=== PATIENT | female | born 1960 | race Caucasian/White ===

== ENCOUNTER → 2019-05-09 | Outpatient (CLI) | payer OTHER ==
[~2019-05-09] VITALS: Ht 162.6 cm; Wt 68.0 kg
[~2019-05-09] MED LIST: LOPRESSOR50 PO; PROPAFENONE 15150 MG PO
--- NOTE | ~2019-05-09 | P ---
[facility] [address] [place] [address] PROCEDURE REPORT Name: GRANT VYAS JED Room #: REG [facility]#: [id number] Admission: 05/09/19 ������������������ Attend Phys: Sunil Rosario MD Discharge: ������������������ Date of : 60 Report #: [id number] THIS REPORT FOR: //name// CC: Ruben Rosario PREOPERATIVE DIAGNOSIS: Supraventricular tachycardia. POSTOPERATIVE DIAGNOSIS: Typical atrioventricular anil reentrant tachycardia. PROCEDURES PERFORMED: 1. SVT ablation, CPT code 47286. 2. EP with left atrial pacing and recording, CPT code 90045. 3. Program stimulation and pacing after IV drug infusion, CPT code 64519. 4. 3D mapping, CPT code 18404. 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 DESCRIPTION OF PROCEDURE: The patient underwent informed consent. We discussed the details of the procedure including the risks, which include, but are not limited to bleeding, vascular damage, cardiac perforation as well as damage to the [place] conduction system, requiring permanent pacemaker. She understood these risks and is willing to proceed. The patient was brought to the EP laboratory in a fasting and sedated state and prepped and draped in a sterile fashion. She was sedated by the Anesthesiology Service with MAC anesthesia. Next, I injected lidocaine to the bilateral groin regions and obtained access to the bilateral femoral veins, placing an 8 and 6-Monegasque short sheath in the right femoral vein and a 6 and 7-Monegasque short sheath in the left femoral vein using the modified Seldinger technique. Next, under fluoroscopy, 3 quadripolar catheters were placed at the HRA, His and RV positions and a decapolar catheter was placed into the coronary sinus with ease. At baseline, the patient was in sinus rhythm with a sinus cycle length of 695 milliseconds, NV interval 150 milliseconds, QRS duration 90 milliseconds, QT interval 410 milliseconds, AH interval 85 milliseconds and HV interval of 40 milliseconds. While I was manipulating catheters in the heart, the patient did go into atrial fibrillation and atrial flutter, which required a 200-joule synchronized cardioversion to restore sinus rhythm. Next, a basic EP study was performed. Atrial burst pacing was performed and the patient did have an episode of SVT with a tachycardia cycle length of 370 milliseconds, a septal VA time of 240 milliseconds with negative P waves in leads II, III and aVF that spontaneously terminated on its own. This did not appear to be consistent with the clinical tachycardia documented on a cardiac [facility] [address] [place] [address] PROCEDURE REPORT Name: GRANT VYAS [place] Room #: REG [facility]#: [id number] Admission: 05/09/19 ������������������ Attend Phys: Sunil Rosario MD Discharge: ������������������ Date of : 60 Report #: [id number] monitor. Next, atrial extrastimuli were delivered and I would get 2-3 beats of what appeared to be typical AV anil reentrant tachycardia. Ventricular pacing was performed and VA block was noted at 290 milliseconds. Single ventricular extrastimuli were delivered. VA conduction appeared to be both midline and decremental. Again with ventricular burst pacing, the patient went into tachycardia with a VA-AV response and again, this appeared to be like the initial tachycardia that I described with septal V-tach. VA time of 240 milliseconds. This tachycardia lasted approximately 10 seconds and terminated on its own with a ventricular electrogram. This appeared to be an atrial tachycardia. Next, atrial burst pacing was performed and the patient went into what appeared to be typical AV anil reentrant tachycardia with a tachycardia cycle length of 340 milliseconds and a septal VA time of 40 milliseconds. I was able to entrain this and this demonstrated a VA-HV response, consistent with typical AV anil reentrant tachycardia. This AVNRT appeared consistent with what we saw on her director of cardiac cath lab. I removed my HRA catheter and placed a SR0 and a [employer]o SmartTouch ThermoCool ablation catheter in the right atrium. Using this ablation catheter, I created a detailed 3D geometry of the His bundle, slow pathway region and the coronary sinus ostium. Of note, she had very small signals in terms of her His potential electrograms. Next, with the ablation catheter, I found signals consistent with the slow pathway. I was approximately 16 mm below my His cloud. I performed a total of 7 ablation lesions, the first 4 resulted in no junctionals. The fifth lesion was slightly higher and about 11 mm below the His cloud. At this site, I got nice slow junctionals for about 30 seconds. Ablation was performed at 30 loomis. I performed 2 additional ablation lesions, one slightly anterior and one slightly posterior to where I got junctionals. Neither of these lesions resulted in junctionals. There was never any compromise to AV anil conduction during ablation. Post-ablation testing was then performed. AV block was noted at 320 milliseconds. Atrial ERP was noted at 240 milliseconds at [address] cycle length. Ventricular pacing was performed and VA block was noted at 330 milliseconds, ventricular single extrastimuli were delivered and no SVT was induced. While I was not pacing, the patient spontaneously again went into atrial fibrillation and we performed a 200-joule synchronized cardioversion with sabianism of sinus rhythm. Isoproterenol infusion was now initiated at 1 mcg per minute. AV block was noted at 270 milliseconds. During all my pacing maneuvers, I had one AV anil echo noted. Ventricular pacing was performed and ventricular ERP was noted at 200 milliseconds at a [address] [facility] [address] [place] [address] PROCEDURE REPORT Name: GRANT VYAS Room #: REG [facility]#: [id number] Admission: 05/09/19 ������������������ Attend Phys: Sunil Rosario MD Discharge: ������������������ Date of : 60 Report #: [id number] cycle length. We could no longer induce typical AV anil reentrant tachycardia and we were no longer inducing this atrial tachycardia. Testing was performed as isoproterenol effects wore off and no other arrhythmias could be induced. Post-ablation, the patient was in sinus rhythm with a sinus cycle length of 530 milliseconds, NV interval 145 milliseconds, QRS duration 80 milliseconds, QT interval 315 milliseconds. As such, all catheters and sheaths were pulled, hemostasis obtained and the patient awoke neurologically and hemodynamically intact, with no complications and no significant bleeding. CONCLUSIONS: 1. Successful ablation of typical AV anil reentrant tachycardia. 2. Induction of another SVT that likely represented atrial tachycardia that was nonsustained and was non-inducible on isoproterenol. 3. Atrial fibrillation and atrial flutter of unknown clinical significance. 4. Normal AV anil function. 5. Normal His-Purkinje function. ��������������������������������������������� ���������������������������������������� By: ��������������������������������������������� [id number] Sunil Rosario MD /martha
[2019-05-09 07:46] LABS: ABSOLUTE NEUTROPHILS 5.1 thou/uL (1.4-8.2); BASOPHILS 0.6 % (0.0-2.0); EOSINOPHILS 2.5 % (0.0-3.0); HEMATOCRIT 45.5 % (37.0-47.0); HEMOGLOBIN 15.4 gm/dL (12.0-15.0); LYMPHOCYTES 27.5 % (24.0-44.0); MCH 30.2 pg (26.0-34.0); MCHC 33.9 g/dL (28.0-37.0); MONOCYTES 7.7 % (1.0-8.0); PLATELET COUNT 189 thou/uL (150-400); POLYS 61.7 % (36.0-66.0); RBC 5.11 mil/uL (4.20-5.00); RDW 14.1 % (10.5-14.5); WBC 8.3 thou/uL (4.0-11.0)
[2019-05-09 07:54] LABS: CALCIUM 9.2 mg/dL (8.5-10.1); CREATININE 1.2 mg/dL (0.6-1.0)
[2019-05-09 07:58] VITALS: BP 126/67
[2019-05-09 07:58] LABS: APTT 27.5 Seconds (24.5-32.8); PROTIME 10.4 Seconds (9.3-11.4)
[2019-05-09 08:00] LABS: ALBUMIN 3.6 g/dL (3.4-5.0); TOTAL BILIRUBIN 0.4 mg/dL (<0.1-1.0); TOTAL PROTEIN 6.9 g/dL (6.4-8.2)
--- NOTE | 2019-05-09 11:52 | NUR ---
PT RETURED FROM PACU AT 1146 AND PLACED IN ROOM 2. FAMILY BROUGHT TO BEDSIDE. WILL CONTINUE TO MONITOR.
== END | disposition home or self-care (01) ==
LOC: CATH 07:03
PROVIDERS: Internal Medicine Cardiovascular Disease
DX: I47.1 Supraventricular tachycardia (principal); I48.91 Unspecified atrial fibrillation; I48.92 Unspecified atrial flutter; F17.210 Nicotine dependence, cigarettes, uncomplicated; Z90.710 Acquired absence of both cervix and uterus; Z79.899 Other long term (current) drug therapy; Z79.01 Long term (current) use of anticoagulants; Z98.890 Other specified postprocedural states
CPT/HCPCS: 62110; 62900; 70005